=== PATIENT | female | born 1945 | race Caucasian/White ===

== ENCOUNTER 2017-03-14 12:32 | Emergency (ER) | payer OTHER, MEDICARE ==
[~2017-03-14] VITALS: Ht 160 cm; Wt 105.0 kg
[~2017-03-14 12:32] MED LIST: ASPI325T PO; CALC-187 PO; GABA300C3 PO; HYDR7.5T76 PO; IPRA18I INH; KLOR20TA6 PO; LISI10TA PO; MAGN250T5 PO; METO50TA PO; PREV30CA36 PO; STOO100T PO
[2017-03-14 12:34] VITALS: BP 217/102; PULSE 98; RESP 20; TEMP 97.8; O2SAT 95
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
[2017-03-14] MEDS ORDERED: ORPHENADRINE INJ 60 MG/2 ML AMP IM ONE (13:45)
[2017-03-14] MEDS ORDERED: KETOROLAC TROMETHAMINE 60 MG/2 ML (IM) VIAL IM ONE (13:45)
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
[2017-03-14] MEDS ORDERED: CYCL1TAB29 PO ×2 (15:01→15:02)
[2017-03-14] MEDS ORDERED: EXTR500C PO ×2 (15:01→15:02)
[2017-03-14 15:31] VITALS: BP 134/72
== END 2017-03-14 15:33 | disposition home or self-care (01) ==
LOC: NEPC 12:32
DX: G44.309 Post-traumatic headache, unspecified, not intractable (principal); M54.2 Cervicalgia; V49.40XA Driver injured in collision with unspecified motor vehicles in traffic accident, initial encounter; Y92.511 Restaurant or cafe as the place of occurrence of the external cause
CPT/HCPCS: 70450; 72125; 96372; 99284; J1885; J2360